=== PATIENT | female | born 2000 | race Caucasian/White ===

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

== ENCOUNTER 2022-04-13 07:51 | Emergency (ER) | payer OTHER ==
[~2022-04-13] VITALS: Ht 157.5 cm; Wt 47.0 kg
--- NOTE | ~2022-04-13 | EKG ---
[facility] [address] [facility] [place], [place] [address] Draft EK completed, results pending confirmation PATIENT NAME: AAKASHCLARICEDARIO NARANJO Electrocardiogram DATE OF : 4 PHYSICIAN: PRELIMINARY REPORT #: [id number] REPORT IS CONFIDENTIAL AND NOT TO BE RELEASED WITHOUT AUTHORIZATION
[2022-04-13] MEDS ORDERED: PRILOSEC OTC20 MG PO (09:59)
== END 2022-04-13 10:07 | disposition home or self-care (01) ==
LOC: ED 07:51
DX: R07.1 Chest pain on breathing (principal); R07.89 Other chest pain; K21.9 Gastro-esophageal reflux disease without esophagitis
CPT/HCPCS: 36415; 71045; 80053; 83735; 84484; 85025; 93005; 93010; 99285-25

== ENCOUNTER 2022-11-12 09:55 | Emergency (ER) | payer OTHER ==
[~2022-11-12] VITALS: Ht 157.5 cm; Wt 47.6 kg
--- OUTSIDE RECORDS SUMMARY | ~2022-11-12 | XMS | Continuity of Care Document ---
Demographics + + + | Address | [address] | | | [place] [address] | + + + | Preferred Language | Unknown | + + + | Marital Status | Never | + + + | Sikh Affiliation | Unknown | + + + | Race | White | + + + | Ethnic Group | Not or | + + + Author + + + | Author | [facility] | + + + | Organization | [facility] | + + + | Address | [address] | | | [place] [address] | + + + | Phone | | + + + Care Team Providers + + + + | Care Orchestra Conductor Name | Role | Phone | + + + + Unavailable | Unavailable | + + + + Unavailable | Unavailable | + + + + Allergies and Intolerances + + + + + + | date | description | facility | reaction | severity | + + + + + + | (no date) | No Known | [facility] | (no reaction) | (no severity) | | | Allergies | | | | + + + + + + Encounters No information. Functional Status No information. Immunizations No information. Medications + + + + | date | description | facility | + + + + | 2022-04-13 00:00 | Levonorgestrel-Ethin | [facility] | | | Estradiol | | + + + + | 2022-04-13 00:00 | OMEPRAZOLE MAGNESIUM | [facility] | + + + + Problems + + + + | date | description | facility | + + + + | 2018-01-20 00:00 | Injury of head | [facility] | + + + + | 2018-01-20 00:00 | Acute strain of neck | [facility] | | | muscle | | + + + + | 2020-04-23 00:00 | Vaginal bleeding | [facility] | + + + + | 2020-08-19 00:00 | Strain of neck muscle | [facility] | + + + + | 2022-04-13 00:00 | Gastroesophageal reflux | [facility] | | | disease | | + + + + | 2022-04-13 00:00 | Chest pain | [facility] | + + + + | 2022-07-13 00:00 | Right lower quadrant | [facility] | | | abdominal pain | | + + + + | 2022-07-13 08:02 | RIGHT LOWER QUADRANT PAIN | [facility] | + + + + | 2022-10-17 00:00 | Ruptured ovarian cyst | [facility] | + + + + | 2022-10-17 20:04 | UNSPECIFIED OVARIAN CYST, | [facility] | | | LEFT SIDE | | + + + + | 2022-10-17 20:04 | PELVIC AND PERINEAL PAIN | [facility] | + + + + | 2022-10-17 20:04 | LEFT LOWER QUADRANT PAIN | [facility] | + + + + Procedures No information. Results/Labs +--------+--------+ +---------+--------+---------+ | test | date | facility | value | unit | notes | +--------+--------+ +---------+--------+---------+ + + | Result panel 1 | + + + + + +--------+ + + | | 2022-04-13 | [facility] | 91.1 | (missing) | (missing) | | (unavailable | 08:05:08 [facility] | | | | + + + +--------+ + + + + | Result panel 2 | + + + + + +--------+ + + | | 2022-04-13 | [facility] | 30.8 | (missing) | (missing) | | (unavailable | 08:05:08 | [facility] | | | | + + + +--------+ + + + + | Result panel 3 | + + + + + +--------+ + + | | 2022-04-13 | [facility] | 33.8 | (missing) | (missing) | | (unavailable | 08:05:08 | [facility] | | | | + + + +--------+ + + + + | Result panel 4 | + + + + + +--------+ + + | | 2022-04-13 | [facility] | 14.0 | (missing) | (missing) | | (unavailable | 08:05:08 | [facility] | | | | + + + +--------+ + + + + | Result panel 5 | + + + + + +-------+ + + | | 2022-04-13 | [facility] | 182 | (missing) | (missing) | | (unavailable | 08:05:08 | [facility] | | | | + + + +-------+ + + + + | Result panel 6 | + + + + + +--------+ + + | | 2022-04-13 | [facility] | 43.8 | (missing) | (missing) | | (unavailable | 08:05:08 | [facility] | | | | + + + +--------+ + + + + | Result panel 7 | + + + + + +--------+ + + | | 2022-04-13 | [facility] | 44.0 | (missing) | (missing) | | (unavailable | 08:05:08 | [facility] | | | | + + + +--------+ + + + + | Result panel 8 | + + + + + +-------+ + + | | 2022-04-13 | [facility] | 9.3 | (missing) | (missing) | | (unavailable | 08:05:08 | [facility] | | | | + + + +-------+ + + + + | Result panel 9 | + + + + + +-------+ + + | | 2022-04-13 | [facility] | 1.7 | (missing) | (missing) | | (unavailable | 08:05:08 | [facility] | | | | + + + +-------+ + + + + | Result panel 10 | + + + + + +-------+ + + | | 2022-04-13 | [facility] | 1.2 | (missing) | (missing) | | (unavailable | 08:05:08 | [facility] | | | | + + + +-------+ + + + + | Result panel 11 | + + + + + +------+---------+ + | | 2022-04-13 | [facility] | 96 | mg/dL | (missing) | | (unavailable | 08:05:08 | [facility] | | | | + + + +------+---------+ + + + | Result panel 12 | + + + + + +------+---------+ + | | 2022-04-13 | [facility] | 16 | mg/dL | (missing) | | (unavailable | 08:05:08 | [facility] | | | | + + + +------+---------+ + + + | Result panel 13 | + + + + + +--------+---------+ + | | 2022-04-13 | [facility] | 0.69 | mg/dL | (missing) | | (unavailable | 08:05:08 | [facility] | | | | + + + +--------+---------+ + + + | Result panel 14 | + + + + + +-------+ + + | | 2022-04-13 | [facility] | 127 | (missing) | (missing) | | (unavailable | 08:05:08 | [facility] | | | | + + + +-------+ + + + + | Result panel 15 | + + + + + +---------+ + + | | 2022-04-13 | [facility] | 23.18 | (missing) | (missing) | | (unavailable | 08:05:08 | [facility] | | | | + + + +---------+ + + + + | Result panel 16 | + + + + + +-------+ + + | | 2022-04-13 | [facility] | 139 | (missing) | (missing) | | (unavailable | 08:05:08 | [facility] | | | | + + + +-------+ + + + + | Result panel 17 | + + + + + +-------+ + + | | 2022-04-13 | [facility] | 3.5 | (missing) | (missing) | | (unavailable | 08:05:08 | [facility] | | | | + + + +-------+ + + + + | Result panel 18 | + + + + + +-------+ + + | | 2022-04-13 | [facility] | 103 | (missing) | (missing) | | (unavailable | 08:05:08 | [facility] | | | | + + + +-------+ + + + + | Result panel 19 | + + + + + +------+ + + | | 2022-04-13 | [facility] | 27 | (missing) | (missing) | | (unavailable | 08:05:08 | [facility] | | | | + + + +------+ + + + + | Result panel 20 | + + + + + +--------+ + + | | 2022-04-13 | [facility] | 12.5 | (missing) | (missing) | | (unavailable | 08:05:08 | [facility] | | | | + + + +--------+ + + + + | Result panel 21 | + + + + + +-------+---------+ + | | 2022-04-13 | [facility] | 9.4 | mg/dL | (missing) | | (unavailable | 08:05:08 | [facility] | | | | + + + +-------+---------+ + + + | Result panel 22 | + + + + + +-------+---------+ + | | 2022-04-13 | [facility] | 2.1 | mg/dL | (missing) | | (unavailable | 08:05:08 | [facility] | | | | + + + +-------+---------+ + + + | Result panel 23 | + + + + + +-------+ + + | | 2022-04-13 | [facility] | 7.8 | (missing) | (missing) | | (unavailable | 08:05:08 | [facility] | | | | + + + +-------+ + + + + | Result panel 24 | + + + + + +-------+ + + | | 2022-04-13 | [facility] | 4.5 | (missing) | (missing) | | (unavailable | 08:05:08 | [facility] | | | | + + + +-------+ + + + + | Result panel 25 | + + + + + +-------+ + + | | 2022-04-13 | [facility] | 3.3 | (missing) | (missing) | | (unavailable | 08:05:08 | [facility] | | | | + + + +-------+ + + + + | Result panel 26 | + + + + + +--------+ + + | | 2022-04-13 | [facility] | 1.36 | (missing) | (missing) | | (unavailable | 08:05:08 | [facility] | | | | + + + +--------+ + + + + | Result panel 27 | + + + + + +-------+ + + | | 2022-04-13 | [facility] | 0.9 | (missing) | (missing) | | (unavailable | 08:05:08 | [facility] | | | | + + + +-------+ + + + + | Result panel 28 | + + + + + +------+ + + | | 2022-04-13 | [facility] | 19 | (missing) | (missing) | | (unavailable | 08:05:08 | [facility] | | | | + + + +------+ + + + + | Result panel 29 | + + + + + +------+ + + | | 2022-04-13 | [facility] | 30 | (missing) | (missing) | | (unavailable | 08:05:08 | [facility] | | | | + + + +------+ + + + + | Result panel 30 | + + + + + +------+ + + | | 2022-04-13 | [facility] | 77 | (missing) | (missing) | | (unavailable | 08:05:08 | [facility] | | | | + + + +------+ + + + + | Result panel 31 | + + + + + +--------+ + + | | 2022-04-13 | [facility] | <4.0 | (missing) | (missing) | | (unavailable | 08:05:08 | [facility] | | | | + + + +--------+ + + + + | Result panel 32 | + + + + + +-------+ + + | | 2022-04-13 | [facility] | 3.1 | (missing) | (missing) | | (unavailable | 08:05:08 | [facility] | | | + + + +-------+ + + + + | Result panel 33 | + + + + + +--------+ + + | | 2022-04-13 | [facility] | 4.41 | (missing) | (missing) | | (unavailable | 08:05:08 | [facility] | | | | + + + +--------+ + + + + | Result panel 34 | + + + + + +--------+ + + | | 2022-04-13 | [facility] | 13.6 | (missing) | (missing) | | (unavailable | 08:05:08 | [facility] | | | | + + + +--------+ + + + + | Result panel 35 | + + + + + +--------+ + + | | 2022-04-13 | [facility] | 40.1 | (missing) | (missing) | | (unavailable | 08:05:08 | [facility] | | | | + + + +--------+ + + + + | Result panel 36 | + + + + + +-------+ + + | | 2022-07-13 | [facility] | 3.5 | (missing) | (missing) | | (unavailable | 08:30:07 | [facility] | | | | + + + +-------+ + + + + | Result panel 37 | + + + + + +--------+ + + | | 2022-07-13 | [facility] | 4.45 | (missing) | (missing) | | (unavailable | 08:30:07 | [facility] | | | | + + + +--------+ + + + + | Result panel 38 | + + + + + +--------+ + + | | 2022-07-13 | [facility] | 13.5 | (missing) | (missing) | | (unavailable | 08:30:07 | [facility] | | | | + + + +--------+ + + + + | Result panel 39 | + + + + + +--------+ + + | | 2022-07-13 | [facility] | 40.7 | (missing) | (missing) | | (unavailable | 08:30:07 | [facility] | | | | + + + +--------+ + + + + | Result panel 40 | + + + + + +--------+ + + | | 2022-07-13 | [facility] | 91.4 | (missing) | (missing) | | (unavailable | 08:30:07 | [facility] | | | | + + + +--------+ + + + + | Result panel 41 | + + + + + +--------+ + + | | 2022-07-13 | [facility] | 30.5 | (missing) | (missing) | | (unavailable | 08:30:07 | [facility] | | | | + + + +--------+ + + + + | Result panel 42 | + + + + + +--------+ + + | | 2022-07-13 | [facility] | 33.3 | (missing) | (missing) | | (unavailable | 08:30:07 | [facility] | | | + + + +--------+ + + + + | Result panel 43 | + + + + + +--------+ + + | | 2022-07-13 | [facility] | 14.6 | (missing) | (missing) | | (unavailable | 08:30:07 | [facility] | | | | + + + +--------+ + + + + | Result panel 44 | + + + + + +-------+ + + | | 2022-07-13 | [facility] | 195 | (missing) | (missing) | | (unavailable | 08:30:07 | [facility] | | | | + + + +-------+ + + + + | Result panel 45 | + + + + + +--------+ + + | | 2022-07-13 | [facility] | 48.7 | (missing) | (missing) | | (unavailable | 08:30:07 | [facility] | | | | + + + +--------+ + + + + | Result panel 46 | + + + + + +--------+ + + | | 2022-07-13 | [facility] | 37.7 | (missing) | (missing) | | (unavailable | 08:30:07 | [facility] | | | | + + + +--------+ + + + + | Result panel 47 | + + + + + +--------+ + + | | 2022-07-13 | [facility] | 11.4 | (missing) | (missing) | | (unavailable | 08:30:07 | [facility] | | | | + + + +--------+ + + + + | Result panel 48 | + + + + + +-------+ + + | | 2022-07-13 | [facility] | 1.6 | (missing) | (missing) | | (unavailable | 08:30:07 | [facility] | | | | + + + +-------+ + + + + | Result panel 49 | + + + + + +-------+ + + | | 2022-07-13 | [facility] | 0.6 | (missing) | (missing) | | (unavailable | 08:30:07 | [facility] | | | | + + + +-------+ + + + + | Result panel 50 | + + + + + +------+---------+ + | | 2022-07-13 | [facility] | 95 | mg/dL | (missing) | | (unavailable | 08:30:07 | [facility] | | | | + + + +------+---------+ + + + | Result panel 51 | + + + + + +------+---------+ + | | 2022-07-13 | [facility] | 14 | mg/dL | (missing) | | (unavailable | 08:30:07 | [facility] | | | | + + + +------+---------+ + + + | Result panel 52 | + + + + + +--------+---------+ + | | 2022-07-13 | [facility] | 0.75 | mg/dL | (missing) | | (unavailable | 08:30:07 | [facility] | | | | + + + +--------+---------+ + + + | Result panel 53 | + + + + + +-------+ + + | | 2022-07-13 | [facility] | 117 | (missing) | (missing) | | (unavailable | 08:30:07 | [facility] | | | | + + + +-------+ + + + + | Result panel 54 | + + + + + +---------+ + + | | 2022-07-13 | [facility] | 18.66 | (missing) | (missing) | | (unavailable | 08:30:07 | [facility] | | | | + + + +---------+ + + + + | Result panel 55 | + + + + + +-------+ + + | | 2022-07-13 | [facility] | 140 | (missing) | (missing) | | (unavailable | 08:30:07 | [facility] | | | | + + + +-------+ + + + + | Result panel 56 | + + + + + +-------+ + + | | 2022-07-13 | [facility] | 3.4 | (missing) | (missing) | | (unavailable | 08:30:07 | [facility] | | | | + + + +-------+ + + + + | Result panel 57 | + + + + + +-------+ + + | | 2022-07-13 | [facility] | 104 | (missing) | (missing) | | (unavailable | 08:30:07 | [facility] | | | | + + + +-------+ + + + + | Result panel 58 | + + + + + +------+ + + | | 2022-07-13 | [facility] | 26 | (missing) | (missing) | | (unavailable | 08:30:07 [facility] | | | | + + + +------+ + + + + | Result panel 59 | + + + + + +--------+ + + | | 2022-07-13 | [facility] | 13.4 | (missing) | (missing) | | (unavailable | 08:30:07 [facility] | | | | + + + +--------+ + + + + | Result panel 60 | + + + + + +-------+---------+ + | | 2022-07-13 | [facility] | 9.2 | mg/dL | (missing) | | (unavailable | 08:30:07 | [facility] | | | | + + + +-------+---------+ + + + | Result panel 61 | + + + + + +-------+ + + | | 2022-07-13 | [facility] | 7.7 | (missing) | (missing) | | (unavailable | 08:30:07 [facility] | | | | + + + +-------+ + + + + | Result panel 62 | + + + + + +-------+ + + | | 2022-07-13 | [facility] | 4.5 | (missing) | (missing) | | (unavailable | 08:30:07 | [facility] | | | | + + + +-------+ + + + + | Result panel 63 | + + + + + +-------+ + + | | 2022-07-13 | [facility] | 3.2 | (missing) | (missing) | | (unavailable | 08:30:07 | [facility] | | | | + + + +-------+ + + + + | Result panel 64 | + + + + + +--------+ + + | | 2022-07-13 | [facility] | 1.41 | (missing) | (missing) | | (unavailable | 08:30:07 | [facility] | | | | + + + +--------+ + + + + | Result panel 65 | + + + + + +-------+ + + | | 2022-07-13 | [facility] | 0.7 | (missing) | (missing) | | (unavailable | 08:30:07 | [facility] | | | | + + + +-------+ + + + + | Result panel 66 | + + + + + +------+ + + | | 2022-07-13 | [facility] | 18 | (missing) | (missing) | | (unavailable | 08:30:07 | [facility] | | | | + + + +------+ + + + + | Result panel 67 | + + + + + +-----+ + + | | 2022-07-13 | [facility] | 7 | (missing) | (missing) | | (unavailable | 08:30:07 | [facility] | | | | + + + +-----+ + + + + | Result panel 68 | + + + + + +------+ + + | | 2022-07-13 | [facility] | 74 | (missing) | (missing) | | (unavailable | 08:30:07 | [facility] | | | | + + + +------+ + + + + | Result panel 69 | + + + + + + + + + | | 2022-07-13 | [facility] | NEGATIVE | (missing) | (missing) | | (unavailable | 08:30:07 | [facility] | | | | + + + + + + + + + | Result panel 70 | + + + + + + + + + | | 2022-07-13 | [facility] | YELLOW | (missing) | (missing) | | (unavailable | 10:16:07 | [facility] | | | | + + + + + + + + + | Result panel 71 | + + + + + +---------+ + + | | 2022-07-13 | [facility] | CLEAR | (missing) | (missing) | | (unavailable | 10:16:07 | [facility] | | | | + + + +---------+ + + + + | Result panel 72 | + + + + + + + + + | | 2022-07-13 | [facility] | NEGATIVE | (missing) | (missing) | | (unavailable | 10:16:07 | [facility] | | | | + + + + + + + + + | Result panel 73 | + + + + + + + + + | | 2022-07-13 | [facility] | NEGATIVE | (missing) | (missing) | | (unavailable | 10:16:07 | [facility] | | | | + + + + + + + + + | Result panel 74 | + + + + + +---------+ + + | | 2022-07-13 | [facility] | TRACE | (missing) | (missing) | | (unavailable | 10:16:07 | [facility] | | | | + + + +---------+ + + + + | Result panel 75 | + + + + + + + + + | | 2022-07-13 | [facility] | <=1.005 | (missing) | (missing) | | (unavailable | 10:16:07 | [facility] | | | | + + + + + + + + + | Result panel 76 | + + + + + + + + + | | 2022-07-13 | [facility] | NEGATIVE | (missing) | (missing) | | (unavailable | 10:16:07 | [facility] | | | | + + + + + + + + + | Result panel 77 | + + + + + +-------+ + + | | 2022-07-13 | [facility] | 7.0 | (missing) | (missing) | | (unavailable | 10:16:07 | [facility] | | | | + + + +-------+ + + + + | Result panel 78 | + + + + + + + + + | | 2022-07-13 | [facility] | NEGATIVE | (missing) | (missing) | | (unavailable | 10:16:07 | [facility] | | | | + + + + + + + + + | Result panel 79 | + + + + + + + + + | | 2022-07-13 | [facility] | NORMAL | (missing) | (missing) | | (unavailable | 10:16:07 | [facility] | | | | + + + + + + + + + | Result panel 80 | + + + + + + + + + | | 2022-07-13 | [facility] | NEGATIVE | (missing) | (missing) | | (unavailable | 10:16:07 | [facility] | | | | + + + + + + + + + | Result panel 81 | + + + + + + + + + | | 2022-07-13 | [facility] | NEGATIVE | (missing) | (missing) | | (unavailable | 10:16:07 | [facility] | | | | + + + + + + + + + | Result panel 82 | + + + + + + + + + | | 2022-07-13 | [facility] | NOT | (missing) | (missing) | | (unavailable | 10:16:07 | [facility] | | | | + + + + + + + + + | Result panel 83 | + + + + + + + + + | | 2022-07-13 | [facility] | NOT | (missing) | (missing) | | (unavailable | 10:16:07 | [facility] | | | | + + + + + + + + + | Result panel 84 | + + + + + +-------+ + + | | 2022-10-17 | [facility] | 8.8 | (missing) | (missing) | | (unavailable | 20:18:07 | [facility] | | | | + + + +-------+ + + + + | Result panel 85 | + + + + + +--------+ + + | | 2022-10-17 | [facility] | 66.6 | (missing) | (missing) | | (unavailable | 20:18:07 | [facility] | | | | + + + +--------+ + + + + | Result panel 86 | + + + + + +--------+ + + | | 2022-10-17 | [facility] | 24.3 | (missing) | (missing) | | (unavailable | 20:18:07 | [facility] | | | | + + + +--------+ + + + + | Result panel 87 | + + + + + +-------+ + + | | 2022-10-17 | [facility] | 6.7 | (missing) | (missing) | | (unavailable | 20:18:07 | [facility] | | | | + + + +-------+ + + + + | Result panel 88 | + + + + + +-------+ + + | | 2022-10-17 | [facility] | 0.5 | (missing) | (missing) | | (unavailable | 20:18:07 | [facility] | | | | + + + +-------+ + + + + | Result panel 89 | + + + + + +-------+ + + | | 2022-10-17 | [facility] | 1.9 | (missing) | (missing) | | (unavailable | 20:18:07 | [facility] | | | | + + + +-------+ + + + + | Result panel 90 | + + + + + + + + + | | 2022-10-17 | [facility] | YELLOW | (missing) | (missing) | | (unavailable | 20:18:07 | [facility] | | | | + + + + + + + + + | Result panel 91 | + + + + + +---------+ + + | | 2022-10-17 | [facility] | CLEAR | (missing) | (missing) | | (unavailable | 20:18:07 | [facility] | | | | + + + +---------+ + + + + | Result panel 92 | + + + + + + + + + | | 2022-10-17 | [facility] | NEGATIVE | (missing) | (missing) | | (unavailable | 20:18:07 | [facility] | | | | + + + + + + + + + | Result panel 93 | + + + + + + + + + | | 2022-10-17 | [facility] | POSITIVE | (missing) | (missing) | | (unavailable | 20:18:07 | [facility] | | | | + + + + + + + + + | Result panel 94 | + + + + + +---------+ + + | | 2022-10-17 | [facility] | SMALL | (missing) | (missing) | | (unavailable | 20:18:07 | [facility] | | | | + + + +---------+ + + + + | Result panel 95 | + + + + + +--------+ + + | | 2022-10-17 | [facility] | 4.46 | (missing) | (missing) | | (unavailable | 20:18:07 | [facility] | | | | + + + +--------+ + + + + | Result panel 96 | + + + + + +---------+ + + | | 2022-10-17 | [facility] | 1.020 | (missing) | (missing) | | (unavailable | 20:18:07 | [facility] | | | | + + + +---------+ + + + + | Result panel 97 | + + + + + + + + + | | 2022-10-17 | [facility] | NEGATIVE | (missing) | (missing) | | (unavailable | 20:18:07 | [facility] | | | | + + + + + + + + + | Result panel 98 | + + + + + +-------+ + + | | 2022-10-17 | [facility] | 8.0 | (missing) | (missing) | | (unavailable | 20:18:07 | [facility] | | | | + + + +-------+ + + + + | Result panel 99 | + + + + + + + + + | | 2022-10-17 | [facility] | NEGATIVE | (missing) | (missing) | | (unavailable | 20:18:07 | [facility] | | | | + + + + + + + + + | Result panel 100 | + + + + + +-------+ + + | | 2022-10-17 | [facility] | 1.0 | (missing) | (missing) | | (unavailable | 20:18:07 | [facility] | | | | + + + +-------+ + + + + | Result panel 101 | + + + + + + + + + | | 2022-10-17 | [facility] | NEGATIVE | (missing) | (missing) | | (unavailable | 20:18:07 | [facility] | | | | + + + + + + + + + | Result panel 102 | + + + + + + + + + | | 2022-10-17 | [facility] | NEGATIVE | (missing) | (missing) | | (unavailable | 20:18:07 | [facility] | | | | + + + + + + + + + | Result panel 103 | + + + + + +------+---------+ + | | 2022-10-17 | [facility] | 85 | mg/dL | (missing) | | (unavailable | 20:18:07 | [facility] | | | | + + + +------+---------+ + + + | Result panel 104 | + + + + + +------+---------+ + | | 2022-10-17 | [facility] | 16 | mg/dL | (missing) | | (unavailable | 20:18:07 | [facility] | | | | + + + +------+---------+ + + + | Result panel 105 | + + + + + +--------+---------+ + | | 2022-10-17 | [facility] | 0.76 | mg/dL | (missing) | | (unavailable | 20:18:07 | [facility] | | | | + + + +--------+---------+ + + + | Result panel 106 | + + + + + +--------+ + + | | 2022-10-17 | [facility] | 13.9 | (missing) | (missing) | | (unavailable | 20:18:07 | [facility] | | | | + + + +--------+ + + + + | Result panel 107 | + + + + + +-------+ + + | | 2022-10-17 | [facility] | 115 | (missing) | (missing) | | (unavailable | 20:18:07 | [facility] | | | | + + + +-------+ + + + + | Result panel 108 | + + + + + +---------+ + + | | 2022-10-17 | [facility] | 21.05 | (missing) | (missing) | | (unavailable | 20:18:07 | [facility] | | | | + + + +---------+ + + + + | Result panel 109 | + + + + + +-------+ + + | | 2022-10-17 | [facility] | 141 | (missing) | (missing) | | (unavailable | 20:18:07 | [facility] | | | | + + + +-------+ + + + + | Result panel 110 | + + + + + +-------+ + + | | 2022-10-17 | [facility] | 3.3 | (missing) | (missing) | | (unavailable | 20:18:07 | [facility] | | | | + + + +-------+ + + + + | Result panel 111 | + + + + + +-------+ + + | | 2022-10-17 | [facility] | 104 | (missing) | (missing) | | (unavailable | 20:18:07 | [facility] | | | | + + + +-------+ + + + + | Result panel 112 | + + + + + +------+ + + | | 2022-10-17 | [facility] | 28 | (missing) | (missing) | | (unavailable | 20:18:07 [facility] | | | | + + + +------+ + + + + | Result panel 113 | + + + + + +--------+ + + | | 2022-10-17 | [facility] | 12.3 | (missing) | (missing) | | (unavailable | 20:18:07 [facility] | | | | + + + +--------+ + + + + | Result panel 114 | + + + + + +-------+---------+ + | | 2022-10-17 | [facility] | 9.2 | mg/dL | (missing) | | (unavailable | 20:18:07 [facility] | | | | + + + +-------+---------+ + + + | Result panel 115 | + + + + + +-------+ + + | | 2022-10-17 | [facility] | 7.6 | (missing) | (missing) | | (unavailable | 20:18:07 [facility] | | | | + + + +-------+ + + + + | Result panel 116 | + + + + + +-------+ + + | | 2022-10-17 | [facility] | 4.4 | (missing) | (missing) | | (unavailable | 20[facility]18:07 [facility] | | | | + + + +-------+ + + + + | Result panel 117 | + + + + + +--------+ + + | | 2022-10-17 | [facility] | 41.6 | (missing) | (missing) | | (unavailable | 20:18:07 [facility] | | | | + + + +--------+ + + + + | Result panel 118 | + + + + + +-------+ + + | | 2022-10-17 | [facility] | 3.2 | (missing) | (missing) | | (unavailable | 20:18:07 [facility] | | | | + + + +-------+ + + + + | Result panel 119 | + + + + + +--------+ + + | | 2022-10-17 | [facility] | 1.38 | (missing) | (missing) | | (unavailable | 20[facility]18:07 [facility] | | | | + + + +--------+ + + + + | Result panel 120 | + + + + + +-------+ + + | | 2022-10-17 | [facility] | 0.5 | (missing) | (missing) | | (unavailable | 20[facility]18:07 [facility] | | | | + + + +-------+ + + + + | Result panel 121 | + + + + + +-----+ + + | | 2022-10-17 | [facility] | 9 | (missing) | (missing) | | (unavailable | [facility]18:07 [facility] | | | | + + + +-----+ + + + + | Result panel 122 | + + + + + +------+ + + | | 2022-10-17 | [facility] | 22 | (missing) | (missing) | | (unavailable | 20[facility]18:07 [facility] | | | | + + + +------+ + + + + | Result panel 123 | + + + + + +------+ + + | | 2022-10-17 | [facility] | 71 | (missing) | (missing) | | (unavailable | 20[facility]18:07 [facility] | | | | + + + +------+ + + + + | Result panel 124 | + + + + + +-------+ + + | | 2022-10-17 | [facility] | 109 | (missing) | (missing) | | (unavailable | 20[facility]18:07 [facility] | | | | + + + +-------+ + + + + | Result panel 125 | + + + + + + + + + | | 2022-10-17 | [facility] | NEGATIVE | (missing) | (missing) | | (unavailable | 20:18:07 [facility] | | | | + + + + + + + + + | Result panel 126 | + + + + + +--------+ + + | | 2022-10-17 | [facility] | 93.2 | (missing) | (missing) | | (unavailable | 20[facility]18:07 [facility] | | | | + + + +--------+ + + + + | Result panel 127 | + + + + + +--------+ + + | | 2022-10-17 | [facility] | 31.1 | (missing) | (missing) | | (unavailable | 20:18:07 [facility] | | | | + + + +--------+ + + + + | Result panel 128 | + + + + + +--------+ + + | | 2022-10-17 | [facility] | 33.4 | (missing) | (missing) | | (unavailable | 20:18:07 [facility] | | | | + + + +--------+ + + + + | Result panel 129 | + + + + + +--------+ + + | | 2022-10-17 | [facility] | 14.3 | (missing) | (missing) | | (unavailable | 20[facility]18:07 [facility] | | | | + + + +--------+ + + + + | Result panel 130 | + + + + + +-------+ + + | | 2022-10-17 | [facility] | 197 | (missing) | (missing) | | (unavailable | 20[facility]18:07 [facility] | | | | + + + +-------+ + + Social History No information. Vital Signs + + + +---------+ | date | measurement | value | units | + + + +---------+ | 2022-04-13 00:00 | BMI | 18.9 | kg/m2 | + + + +---------+ | 2022-04-13 00:00 | BP_diastolic | 75 | mmHg | + + + +---------+ | 2022-04-13 00:00 | BP_systolic | 107 | mmHg | + + + +---------+ | 2022-04-13 00:00 | heart_rate | 78 | /min | + + + +---------+ | 2022-04-13 00:00 | height_metric | 157.48 | cm | + + + +---------+ | 2022-04-13 00:00 | height_standard | 62 | in | + + + +---------+ | 2022-04-13 00:00 | o2_saturation | 100 | % | + + + +---------+ | 2022-04-13 00:00 | respiration_rate | 17 | /min | + + + +---------+ | 2022-04-13 00:00 | temperature_metric | 37 | C | | | | | | + + + +---------+ | 2022-04-13 00:00 | | 98.6 | F | | | temperature_standar | | | | | d | | | + + + +---------+ | 2022-04-13 00:00 | weight_metric | 46.97 | kg | + + + +---------+ | 2022-04-13 00:00 | weight_metric | 46.98 | kg | + + + +---------+ | 2022-04-13 00:00 | weight_standard | 103.56 | lb | + + + +---------+ | 2022-04-13 00:00 | weight_standard | 103.57 | lb | + + + +---------+ | 2022-07-13 00:00 | BMI | 19.8 | kg/m2 | + + + +---------+ | 2022-07-13 00:00 | BP_diastolic | 79 | mmHg | + + + +---------+ | 2022-07-13 00:00 | BP_systolic | 114 | mmHg | + + + +---------+ | 2022-07-13 00:00 | heart_rate | 95 | /min | + + + +---------+ | 2022-07-13 00:00 | height_metric | 157.48 | cm | + + + +---------+ | 2022-07-13 00:00 | height_standard | 62 | in | + + + +---------+ | 2022-07-13 00:00 | o2_saturation | 100 | % | + + + +---------+ | 2022-07-13 00:00 | respiration_rate | 15 | /min | + + + +---------+ | 2022-07-13 00:00 | temperature_metric | 37.11 | C | | | | | | + + + +---------+ | 2022-07-13 00:00 | | 98.8 | F | | | temperature_standar | | | | | d | | | + + + +---------+ | 2022-07-13 00:00 | weight_metric | 49.2 | kg | + + + +---------+ | 2022-07-13 00:00 | weight_standard | 108.47 | lb | + + + +---------+ | 2022-10-17 00:00 | BMI | 19.3 | kg/m2 | + + + +---------+ | 2022-10-17 00:00 | BP_diastolic | 61 | mmHg | + + + +---------+ | 2022-10-17 00:00 | BP_systolic | 102 | mmHg | + + + +---------+ | 2022-10-17 00:00 | heart_rate | 70 | /min | + + + +---------+ | 2022-10-17 00:00 | height_metric | 157.48 | cm | + + + +---------+ | 2022-10-17 00:00 | height_standard | 62 | in | + + + +---------+ | 2022-10-17 00:00 | o2_saturation | 99 | % | + + + +---------+ | 2022-10-17 00:00 | respiration_rate | 20 | /min | + + + +---------+ | 2022-10-17 00:00 | temperature_metric | 36.61 | C | | | | | | + + + +---------+ | 2022-10-17 00:00 | | 97.9 | F | | | temperature_standar | | | | | d | | | + + + +---------+ | 2022-10-17 00:00 | weight_metric | 47.8 | kg | + + + +---------+ | 2022-10-17 00:00 | weight_standard | 105.38 | lb | + + + +---------+"
--- OUTSIDE RECORDS SUMMARY | ~2022-11-12 | XMS | Continuity of Care Document ---
Demographics + + + | Address | [address] | | | [place] [address] | + + + | Preferred Language | Unknown | + + + | Marital Status | Never | + + + | Amish Affiliation | Unknown | + + + | Race | White | + + + | Ethnic Group | Not or | + + + Author + + + | Author | [facility] | + + + | Organization | [facility] | + + + | Address | [address] | | | [place] [address] | + + + | Phone | | + + + Care Team Providers + + + + | Care Educational Program Assistant Name | Role | Phone | + [...] + | 2022-04-13 00:00 | Levonorgestrel-Ethin | [facility] | | | Estradiol | | + + + + | 2022-04-13 00:00 | OMEPRAZOLE MAGNESIUM | [facility] | + + + + Problems + + + + | date | description | facility | + + + + | 2018-01-20 00:00 | Injury of head | [facility] | + + + + | 2018-01-20 00:00 | Acute strain of neck | [facility] | | | muscle | | + + + + | 2020-04-23 00:00 | Vaginal bleeding | [facility] | + + + + | 2020-08-19 00:00 | Strain of neck muscle | [facility] | + + + + | 2022-04-13 00:00 | Gastroesophageal reflux | [facility] | | | disease | | + + + + | 2022-04-13 00:00 | Chest pain | [facility] | + + + + | 2022-07-13 00:00 | Right lower quadrant | [facility] | | | abdominal pain | | + + + + | 2022-07-13 08:02 | RIGHT LOWER QUADRANT PAIN | [facility] | + + + + | 2022-10-17 00:00 | Ruptured ovarian cyst | [facility] | + + + + | [...] (missing) | | (unavailable | 08:30:07 | [facility] | | | | | ) | [...]
[~2022-11-12 09:55] MED LIST changes: +PRILOSEC OTC20 MG PO
--- OUTSIDE RECORDS SUMMARY | 2022-11-12 10:03 | XMS ---
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 Russell VISIT COUNT (12 MO.) [address] [place] [address] TOTAL 4 NOTE: Visits indicate total known visits. ED/UCC VISIT TRACKING (12 MO.) 11/12/2022 09:56 [facility] TYPE: Emergency COMPLAINT: - CHEST PAIN 10/17/2022 20:04 [facility] TYPE: Emergency COMPLAINT: - LOWER ABD PAIN DIAGNOSES: - Left lower quadrant pain - Pelvic and perineal pain - Unspecified ovarian cyst, left side 07/13/2022 08:02 [facility] TYPE: Emergency COMPLAINT: - LOWER ABD PAIN DIAGNOSES: - Right lower quadrant pain 04/13/2022 07:54 [facility] TYPE: Emergency COMPLAINT: - CHEST PAIN DIAGNOSES: - Chest pain on breathing - Gastro-esophageal reflux disease without esophagitis - Other chest pain INPATIENT VISIT TRACKING (12 MO.) No inpatient visits to display in this time frame [email or web address]
[2022-11-12 10:41] LABS: BASOPHILS 0.6 % (0-2); EOSINOPHILS 0.5 % (0-6); HEMATOCRIT 39.9 % (35.0-50.0); HEMOGLOBIN 13.7 g/dL (12.0-18.0); LYMPHOCYTES 35.1 % (24-44); MCH 31.8 (27-36); MCHC 34.4 g/dl (30-36); MCV 92.5 fl (81-99); NEUTROPHILS 54.8 % (39-80); PLATELET COUNT 168 K/uL (140-440); RBC 4.32 M/ul (4.3-5.7)
[2022-11-12 10:47] LABS: ALBUMIN 4.7 g/dL (3.4-5.0); ALBUMIN/GLOBULIN RATIO 1.47 (1.1-2.4); ALKALINE PHOSPHATASE 67 U/L (46-116); ALT (SGPT) 17 U/L (14-59); ANION GAP 14.9 (7-21); AST (SGOT) 13 U/L (15-37); BILIRUBIN, TOTAL 0.4 ng/dL (0.2-1.0); BUN/CREATININE RATIO 15.15 (6.0-28.6); CALCIUM 9.8 mg/dL (8.5-10.1); CARBON DIOXIDE 24 mmol/L (21-32); CHLORIDE 106 mmol/L (98-107); CREATININE, SERUM 0.66 mg/dL (0.55-1.02); GLOMERULAR FILTRATION RATE,EST 129 mL/min (>60); POTASSIUM 3.9 mmol/L (3.5-5.1); PROTEIN, TOTAL 7.9 g/dL (6.4-8.2); UREA NITROGEN 10 mg/dL (7-18)
[2022-11-12 11:57] LABS: BILIRUBIN, URINE NEGATIVE (negative); BLOOD/HGB, URINE TRACE-I (Negative); KETONE, URINE NEGATIVE (Negative); LEUK ESTERASE, URINE NEGATIVE (negative); NITRITE, URINE NEGATIVE (negative)
[2022-11-12 12:08] LABS: BACTERIA, URINE NONE SEEN /hpf (negative); CASTS, URINE NONE SEEN \\lpf; COLLECTION TYPE, URINE CLEAN CATCH; CRYSTALS, URINE NONE SEEN (0-1+); EPITHELIAL CELLS, URINE SQUAMOUS 1+ /lpf (0-1+); REFLEX CULTURE, URINE No (No); WHITE BLOOD CELLS, URINE 0-1 /HPF (0-5)
[2022-11-12 15:18] VITALS: BP 114/80
--- NOTE | 2022-11-14 17:06 | EKG ---
[facility] [address] [place], [place] [address] Signed Sinus rhythm with sinus arrhythmia with short ME Right atrial enlargement Borderline ECG No previous ECGs available Confirmed by SILVA DUQUE MD ([id number]) on 11/14/2022 5:06:30 PM Electronically Signed By: SILVA DUQUE 11/14/22 1706 PATIENT NAME: ONESIMO FINN Electrocardiogram DATE OF : 4 PHYSICIAN: SILVA DUQUE REPORT #: [id number] REPORT IS CONFIDENTIAL AND NOT TO BE RELEASED WITHOUT AUTHORIZATION
== END 2022-11-12 15:18 | disposition home or self-care (01) ==
LOC: ED 09:55
PROVIDERS: Emergency Medicine
DX: R07.9 Chest pain, unspecified (principal)
CPT/HCPCS: 36415; 71045; 80053; 81001; 84484; 84703; 85025; 93005; 93010; 99285-25

== ENCOUNTER 2022-11-27 15:21 | Emergency (ER) | payer OTHER ==
[~2022-11-27] VITALS: Ht 157.5 cm; Wt 45.8 kg
--- OUTSIDE RECORDS SUMMARY | ~2022-11-27 | XMS | Continuity of Care Document ---
Demographics + + + | Address | [address] | | | [place] [address] | + + + | Preferred Language | Unknown | + + + | Marital Status | Never | + + + | Temple Affiliation | Unknown | + + + | Race | White | + + + | Ethnic Group | Not or | + + + Author + + + | Author | [facility] | + + + | Organization | [facility] | + + + | Address | [address] | | | [place] [address] | + + + | Phone | | + + + Care Team Providers + + + + | Care Trademark Attorney Name | Role | Phone | + + + + Unavailable | Unavailable | + + + + Allergies No information. Encounters No information. Functional Status No information. Immunizations No information. Medications No information. Problems + + + + | date | description | facility | + + + + | 2022-10-17 20:04 | UNSPECIFIED OVARIAN CYST, | [facility] | | | LEFT SIDE | | + + + + | 2022-10-17 20:04 | PELVIC AND PERINEAL PAIN | [facility] | + + + + | 2022-10-17 20:04 | LEFT LOWER QUADRANT PAIN | [facility] | + + + + | 2022-11-12 09:56 | CHEST PAIN, UNSPECIFIED | [facility] | + + + + Procedures No information. Results/Labs No information. Social History +--------+ + + | date | description | facility | +--------+ + + Vital Signs No information."
--- OUTSIDE RECORDS SUMMARY | ~2022-11-27 | XMS | Continuity of Care Document ---
Demographics + + + | Address | [address] | | | [place] [address] | + + + | Preferred Language | Unknown | + + + | Marital Status | Never | + + + | Sikhism Affiliation | Unknown | + + + | Race | White | + + + | Ethnic Group | Not or | + + + Author + + + | Author | [place] | + + + | Organization | [facility] | + + + | Address | [address] | | | [place] [address] | + + + | Phone | | + + + Care Team Providers + + + + | Care Poultry Grader Name | Role | Phone | + [...]
--- OUTSIDE RECORDS SUMMARY | 2022-11-27 15:33 | XMS ---
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 [facility] VISIT COUNT (12 MO.) [address] [place] [address] TOTAL 5 NOTE: Visits indicate total known visits. ED/UCC VISIT TRACKING (12 MO.) 11/27/2022 15:22 [facility] Emergency COMPLAINT: - LIGHTHEADED 11/12/2022 09:56 [facility] TYPE: Emergency COMPLAINT: - CHEST PAIN DIAGNOSES: - Chest pain, unspecified 10/17/2022 20:04 [facility] TYPE: Emergency [...] visits to display in this time frame [email or web address]
[2022-11-27] MEDS ORDERED: FLUOXETINE HCL20 MG PO (18:51)
[2022-11-27] MEDS ORDERED: D3-501250 MCG PO (21:40)
[2022-11-27 21:55] VITALS: BP 116/69
== END 2022-11-27 21:56 | disposition home or self-care (01) ==
LOC: ED 15:21
DX: E86.0 Dehydration (principal); E55.9 Vitamin D deficiency, unspecified
CPT/HCPCS: 99283; J7121

== ENCOUNTER 2024-06-24 21:32 | Emergency (ER) | payer OTHER ==
[~2024-06-24] VITALS: Ht 157.5 cm; Wt 51.4 kg
[~2024-06-24 21:32] MED LIST changes: +D3-501250 MCG PO; +FLUOXETINE HCL20 MG PO
[2024-06-24] MEDS ORDERED: MIRTAZAPINE15 MG PO (21:42)
[2024-06-24] MEDS ORDERED: BUSPIRONE HCL5 MG PO (21:42)
[2024-06-24 22:35] LABS: BILIRUBIN, URINE NEGATIVE (negative); BLOOD/HGB, URINE NEGATIVE (Negative); KETONE, URINE NEGATIVE (Negative); LEUK ESTERASE, URINE NEGATIVE (negative); NITRITE, URINE NEGATIVE (negative)
[2024-06-24 23:14] LABS: BASOPHILS 0.7 % (0-2); EOSINOPHILS 0.9 % (0-6); HEMATOCRIT 37.2 % (35.0-50.0); HEMOGLOBIN 13.1 g/dL (12.0-18.0); LYMPHOCYTES 27.9 % (24-44); MCH 32.3 (27-36); MCHC 35.3 g/dl (30-36); MCV 91.3 fl (81-99); MONOCYTES 10.6 % (0-12); NEUTROPHILS 59.9 % (39-80); PLATELET COUNT 195 K/uL (140-440); RBC 4.08 M/ul (4.3-5.7); RDW 13.1 (10.5-15.0)
[2024-06-24 23:32] LABS: ALBUMIN 3.8 g/dL (3.4-5.0); ALBUMIN/GLOBULIN RATIO 1.23 (1.1-2.4); ANION GAP 12.5 (7-21); BILIRUBIN, TOTAL 0.3 mg/dL (0.2-1.0); BUN/CREATININE RATIO 19.17 (6.0-28.6); CALCIUM 8.1 mg/dL (8.5-10.1); CREATININE, SERUM 0.73 mg/dL (0.55-1.02); POTASSIUM 3.5 mmol/L (3.5-5.1); PROTEIN, TOTAL 6.9 g/dL (6.4-8.2)
[2024-06-25] VITALS: BP 110/65
== END 2024-06-25 | disposition home or self-care (01) ==
LOC: ED 21:32
PROVIDERS: Emergency Medicine
DX: R10.31 Right lower quadrant pain (principal); Z79.899 Other long term (current) drug therapy
CPT/HCPCS: 36415; 74177; 80053; 81003; 83690; 84703; 85025; 99284-25; Q9967

== ENCOUNTER 2024-08-19 18:44 | Emergency (ER) | payer OTHER ==
[~2024-08-19] VITALS: Ht 157.5 cm; Wt 51.8 kg
--- OUTSIDE RECORDS SUMMARY | ~2024-08-19 | XMS | Continuity of Care Document ---
Demographics + + + | Address | [address] | | | [place] [address] | + + + | Preferred Language | Unknown | + + + | Marital Status | Unknown | + + + | Presybeterian Affiliation | Unknown | + + + | Race | White | + + + | Ethnic Group | Not or | + + + Author + + + | Author | [facility] | + + + | Organization | [facility] | + + + | Address | [address] | | | [place] [address] | + + + | Phone | | + + + Care Team Providers + + + + | Care Basket Mender Name | Role | Phone | + + + + Unavailable | Unavailable | + + + + Allergies No information. Encounters No information. Functional Status No information. Immunizations No information. Medications No information. Problems + + + + | date | description | facility | + + + + | 2024-07-12 16:28:58 | Other specified | [facility] | | | related conditions, first | | | | trimester | | + + + + | 2024-07-12 16:28:58 | Unspecified abdominal pain | [facility] | | | | | + + + + Procedures No information. Results/Labs No information. Social History +--------+ + + | date | description | facility | +--------+ + + Vital Signs No information."
[~2024-08-19 18:44] MED LIST changes: +BUSPIRONE HCL5 MG PO; +MIRTAZAPINE15 MG PO
[2024-08-19 21:57] LABS: BASOPHILS 0.3 % (0.1-1.2); EOSINOPHILS 0.5 % (0.7-5.8); HEMOGLOBIN 12.9 g/dL (11.2-15.7); LYMPHOCYTES 21.3 % (19.3-51.7); MCH 31.9 PG (25.6-32.2); MCHC 35.8 g/dL (32.2-35.5); MCV 89.1 fL (79.4-94.8); MONOCYTES 7.1 % (4.7-12.5); NEUTROPHILS 70.6 % (34.0-71.1); PLATELET COUNT 214 K/uL (182-369); RBC 4.04 M/uL (3.93-5.22)
[2024-08-19 22:12] LABS: ALBUMIN 3.9 g/dL (3.4-5.0); ALBUMIN/GLOBULIN RATIO 1.05 (1.1-2.4); ANION GAP 15.4 (7-21); BILIRUBIN, TOTAL 0.3 mg/dL (0.2-1.0); BUN/CREATININE RATIO 13.55 (6.0-28.6); CALCIUM 9.3 mg/dL (8.5-10.1); CREATININE, SERUM 0.59 mg/dL (0.55-1.02); POTASSIUM 3.4 mmol/L (3.5-5.1); PROTEIN, TOTAL 7.6 g/dL (6.4-8.2)
[2024-08-19 23:26] LABS: BILIRUBIN, URINE NEGATIVE (negative); BLOOD/HGB, URINE NEGATIVE (Negative); KETONE, URINE SMALL (Negative); LEUK ESTERASE, URINE TRACE (negative); NITRITE, URINE NEGATIVE (negative); PH, URINE 6.5 (5-7)
[2024-08-19 23:43] LABS: BACTERIA, URINE 1+ /hpf (negative); CASTS, URINE NONE SEEN \\lpf; COLLECTION TYPE, URINE CLEAN CATCH; CRYSTALS, URINE NONE SEEN (0-1+); EPITHELIAL CELLS, URINE SQUAMOUS 2+ /lpf (0-1+); RED BLOOD CELLS, URINE 0-1 /hpf (0-5); REFLEX CULTURE, URINE No (No)
[2024-08-19 23:52] VITALS: BP 91/57
== END 2024-08-19 23:52 | disposition home or self-care (01) ==
LOC: ED 18:44
PROVIDERS: Emergency Medicine
DX: O99.891 Other specified diseases and conditions complicating pregnancy (principal); R10.12 Left upper quadrant pain; Z3A.11 11 weeks gestation of pregnancy
CPT/HCPCS: 36415; 80053; 81001; 83690; 85025; 85379; 99284